=== PATIENT | female | born 2000 | race Caucasian/White ===

== ENCOUNTER → 2024-07-09 07:38 | Outpatient (CLI) | payer OTHER, SELFPAY ==
--- NOTE | 2024-07-09 20:11 | DI.NM.S_ITS ---
DATE OF SERVICE: 07/09/2024 EXERCISE STRESS TEST INDICATION: Lightheadedness. CARDIAC STRESS: Patient underwent exercise stress test under the supervision of an attending staff. She walked on Aime protocol for 7 minutes. Achieved maximum heart rate of 164, which was 83% of target heart rate. Baseline rhythm sinus with sinus bradycardia with heart rate in 40s. During stress, no convincing ischemic changes seen. No significant arrhythmias other than short run of sinus arrhythmia in the recovery. Resting blood pressure 100/17. Peak blood pressure 146/80. 10.1 METS of workload. ALEJANDRA positive 34%. No chest pain. Had some shortness of breath. CONCLUSION: Exercise stress test which is mildly submaximal exercise stress test negative for inducible ischemia. Diminished exercise tolerance. Normal blood pressure response. No anginal symptoms. No significant arrhythmias other than sinus arrhythmia in the recovery. Overall, low-risk exercise stress test. Renee Salamanca - YAKOV/roro/MARK doc#: [id number]/job#: [id number] dd: 07/09/2024 16:56:00 dt: 07/09/2024 20:05:00 DICTATING /COPIES TO: Cristhian Blas MD COPIES MNE: [id number];
== END ==
PROVIDERS: PCP Physician Assistant; Referring Provider Internal Medicine Cardiovascular Disease; Visit Provider Internal Medicine Cardiovascular Disease
DX: R07.9 Chest pain, unspecified (principal); R42 Dizziness and giddiness
CPT/HCPCS: 93017